=== PATIENT | male | born 1990 | race Caucasian/White ===

== ENCOUNTER 2019-08-16 22:16 | Inpatient (IN) | payer OTHER ==
[2019-08-16 22:20] VITALS: BMI 28.1
--- NOTE | 2019-08-17 00:04 | PDOC ---
History of Present Illness - General Chief Complaint: Headache Stated Complaint: HEADACHE/SENT BY URGENT CARE Time Seen by Provider: 08/16/19 23:33 History Source: Patient Exam Limitations: No Limitations - History of Present Illness Initial Comments: 08/16/19 23:51 Patient is a 29 year old male with no pmhx c/o headache x1 week. He had never had this type of GARDNER, that is refractory to Tylenol patient states that GARDNER is mostly on the left side behind the eye and radiates to the occiput. Pain is an intermittent pressure 9/10 currently. States when his pain gets very strong it is associated with nausea, photophobia, dizziness - like he is walking on air and unbalanced. States feels pressure in the forehead with holding the head down. He has been taking tylenol for the pain with mild relief every 5 hours but the pain returns. No h/o URI or congestion. Denies fever, chills, nasal congestion, neck stiffness, tinnitus. No recent travel. FamHX: Mother with history of migraines PMD: Dr. Gardiner PMHX: as above PSOCHX: neg etoh, neg drug, neg cig ALL: NKDA GENERAL/CONSTITUTIONAL: [No fever or chills. No weakness. No weight change.] HEAD, EYES, EARS, NOSE AND THROAT: [No change in vision. No ear pain or discharge. No sore throat.] CARDIOVASCULAR: [No chest pain or shortness of breath.] RESPIRATORY: [No cough, wheezing, or hemoptysis.] GASTROINTESTINAL: [No nausea, vomiting, diarrhea or constipation. No rectal bleeding.] GENITOURINARY: [No dysuria, frequency, or change in urination.] MUSCULOSKELETAL: [No joint or muscle swelling or pain. No neck or back pain.] SKIN AND BREASTS: [No rash or easy bruising.] NEUROLOGIC: [No headache, vertigo, loss of consciousness, or loss of sensation.] PSYCHIATRIC: [No depression or anxiety.] ENDOCRINE: [No increased thirst. No abnormal weight change.] HEMATOLOGIC/LYMPHATIC: [No anemia, easy bleeding, or history of blood clots.] ALLERGIC/IMMUNOLOGIC: [No hives or skin allergy. No latex allergy.] GENERAL: [The patient is awake, alert, and fully oriented, in no acute distress.] HEAD: [Normal with no signs of trauma, no sinus tenderness.] EYES: [Pupils equal, round and reactive to light, extraocular movements intact, sclera anicteric, conjunctiva clear.] ENT: [Ears normal, nares patent, oropharynx clear without exudates. Moist mucous membranes.] NECK: [Normal range of motion, supple without lymphadenopathy, JVD, or masses.] LUNGS: [Breath sounds equal, clear to auscultation bilaterally. No wheezes, and no crackles.] HEART: [Regular rate and rhythm, normal S1 and S2 without murmur, rub.] ABDOMEN: [Soft, nontender, normoactive bowel sounds. No guarding, no rebound. No masses.] EXTREMITIES: [Normal range of motion, no edema. No clubbing or cyanosis. No cords, erythema, or tenderness.] NEUROLOGICAL: [Cranial nerves II through XII grossly intact. Normal speech, normal gait.] PSYCH: [Normal mood, normal affect.] SKIN: [Warm, Dry, normal turgor, no rashes or lesions noted.] Past History - Past Medical History Allergies/Adverse Reactions: Allergies Allergy/AdvReac Type Severity Reaction Status Date / Time No Known Allergies Allergy Verified 08/16/19 22:20 Home Medications: Ambulatory Orders Sumatriptan Succinate [Imitrex] 25 mg PO Q6H #30 tablet 08/17/19 Topiramate [Topamax] 50 mg PO HS #30 tablet 08/17/19 Topiramate [Topamax] 50 mg PO HS #60 tablet 08/17/19 COPD: No - Psycho Social/Smoking Cessation Hx Smoking History: Never smoked *Physical Exam - Vital Signs Last Vital Signs Temp Pulse Resp BP Pulse Ox 98.0 F 84 18 135/69 100 08/16/19 22:18 08/16/19 22:18 08/16/19 22:18 08/16/19 22:18 08/16/19 22:18 ED Treatment Course - LABORATORY CBC & Chemistry Diagram: 08/17/19 08:57 08/17/19 08:57 Medical Decision Making - Medical Decision Making 08/16/19 23:51 Patient is a 29 year old male with no pmhx c/o headache x1 week. He had never had this type of GARDNER, that is refractory to Tylenol patient states that GARDNER is mostly on the left side behind the eye and radiates to the occiput. Pain is an intermittent pressure 9/10 currently. States when his pain gets very strong it is associated with nausea, photophobia, dizziness - like he is walking on air and unbalanced. States feels pressure in the forehead with holding the head down. He has been taking tylenol for the pain with mild relief every 5 hours but the pain returns. No h/o URI or congestion. Denies fever, chills, nasal congestion, neck stiffness. No recent travel. FamHX: Mother with history of migraines DDX: Migraine versus sinus headache less likely aneurysm Labs IV fluids, Reglan, Toradol, Decadron, Benadryl. Reassess 08/17/19 01:33 Patient states feeling improved headache is resolved. Patient is pending CT scan results. Endorsed to the nbight to follow CT scan head and disposition. Discharge - Discharge Information Problems reviewed: Yes Clinical Impression/Diagnosis: Headache Qualifiers: Headache type: unspecified Headache chronicity pattern: unspecified pattern Intractability: not intractable Qualified Code(s): R51 - Headache Condition: Good - Follow up/Referral - Patient Discharge Instructions - Post Discharge Activity
[2019-08-17] MEDS ORDERED: SODIUM CHLORIDE 0.9% 500 ML INFUS.BAG IV ONE (00:10)
[2019-08-17] MEDS ORDERED: METOCLOPRAMIDE HCL INJECTION 10 MG/2 ML VIAL IVPUSH ONE (00:10)
[2019-08-17] MEDS ORDERED: KETOROLAC TROMETHAMINE 30 MG/1 ML VIAL IVPUSH ONE (00:10)
[2019-08-17] MEDS ORDERED: DEXAMETHASONE SOD PHOSPHATE 10 MG/1 ML VIAL IVPUSH ONE (00:10)
[2019-08-17] MEDS ORDERED: METOCLOPRAMIDE HCL INJECTION 10 MG/2 ML VIAL ONE (00:39)
[2019-08-17] MEDS ORDERED: KETOROLAC TROMETHAMINE 30 MG/1 ML VIAL ONE (00:39)
[2019-08-17] MEDS ORDERED: DEXAMETHASONE SOD PHOSPHATE 10 MG/1 ML VIAL ONE (00:39)
[2019-08-17 00:57] LABS: BASO % 0.5 % (0-2.0); EOS % 0.7 % (0-4.5); HEMATOCRIT 49.8 % (35.4-49); HEMOGLOBIN 16.6 GM/dL (11.7-16.9); LYMPH % 32.6 % (8-40); MCH 27.6 pg (25.7-33.7); MCHC 33.4 g/dl (32.0-35.9); MEAN CELL VOLUME 82.5 fl (80-96); MEAN PLT VOLUME 8.8 fl (7.5-11.1); MONO % 7.4 % (3.8-10.2); NEUT % 58.8 % (42.8-82.8); PLATELET COUNT 210 K/MM3 (134-434); RBC 6.03 M/mm3 (4.00-5.60); RDW 14.6 % (11.9-15.9)
[2019-08-17 01:10] LABS: ALBUMIN 4.5 g/dl (3.4-5.0); BILIRUBIN,TOTAL 0.5 mg/dL (0.2-1); BLOOD UREA NITROGEN 18.9 mg/dL (7-18); CALCIUM 8.7 mg/dL (8.5-10.1); CREATININE 1.1 mg/dL (0.55-1.3); POTASSIUM 4.6 mmol/L (3.5-5.1); TOT PROT 7.8 g/dl (6.4-8.2)
--- NOTE | 2019-08-17 03:19 | PDOC ---
*Physical Exam - Vital Signs Last Vital Signs Temp Pulse Resp BP Pulse Ox 98.0 F 84 18 135/69 100 08/16/19 22:18 08/16/19 22:18 08/16/19 22:18 08/16/19 22:18 08/16/19 22:18 ED Treatment Course - LABORATORY CBC & Chemistry Diagram: 08/17/19 08:57 08/17/19 08:57 - ADDITIONAL ORDERS Additional order review: Laboratory Results 08/17/19 00:20 Sodium 140 Potassium 4.6 Chloride 107 Carbon Dioxide 27 Anion Gap 6 L BUN 18.9 H Creatinine 1.1 Est GFR (CKD-EPI)AfAm 103.85 Est GFR (CKD-EPI)NonAf 89.61 Random Glucose 91 Calcium 8.7 Total Bilirubin 0.5 AST 32 ALT 54 Alkaline Phosphatase 63 Total Protein 7.8 Albumin 4.5 08/17/19 00:20 RBC 6.03 H MCV 82.5 MCHC 33.4 RDW 14.6 MPV 8.8 Neutrophils % 58.8 Lymphocytes % 32.6 Monocytes % 7.4 Eosinophils % 0.7 Basophils % 0.5 - Medications Given in the ED: ED Medications Discontinued Medications Generic Name Dose Route Start Last Admin Trade Name Freq PRN Reason Stop Dose Admin Dexamethasone Sodium Phosphate 10 mg 08/17/19 00:10 08/17/19 00:48 Decadron Injection - IVPUSH 08/17/19 00:11 10 mg ONCE ONE Administration Ketorolac Tromethamine 30 mg 08/17/19 00:10 08/17/19 00:48 Toradol Injection - IVPUSH 08/17/19 00:11 30 mg ONCE ONE Administration Metoclopramide HCl 10 mg 08/17/19 00:10 08/17/19 00:48 Reglan Injection - IVPUSH 08/17/19 00:11 10 mg ONCE ONE Administration Sodium Chloride 1,000 ml 08/17/19 00:10 08/17/19 00:48 Normal Saline - IV 08/17/19 00:11 1,000 ml ONCE ONE Administration Medical Decision Making - Medical Decision Making 08/17/19 03:18 Patient Name: ASTER KAT THIS IS A PRELIMINARY REPORT FROM [facility] DATE OF SERVICE: 2019-08-17 01:06:28 IMAGES: 39 Patient Name: KEYLA JEAN BAPTISTE THIS IS A PRELIMINARY REPORT FROM [facility] DATE OF SERVICE: 2019-08-17 01:24:42 IMAGES: 265 EXAM: CT HEAD WITHOUT INTRAVENOUS CONTRAST. HISTORY: Headache COMPARISON: None. FINDINGS: 1. Limited examination of the CT head as the superior most portion of the brain was not imaged. 2. The imaged portions of the brain demonstrate no intracranial bleed, extra- axial fluid collection, mass effect, midline shift, hydrocephalus, acute territorial infarct or depressed skull fracture. 3. Disconjugate gaze. Recommend clinical correlation. 4. Bilateral maxillary sinus retention cysts/polyps. 08/17/19 03:37 Pt has right eye a bit medially placed and doesn't abduct to the right completely. Pt has pain on the right lateral aspect of the eye. Discharge - Discharge Information Problems reviewed: Yes Clinical Impression/Diagnosis: Headache Qualifiers: Headache type: unspecified Headache chronicity pattern: unspecified pattern Intractability: not intractable Qualified Code(s): R51 - Headache Condition: Good - Follow up/Referral - Patient Discharge Instructions - Post Discharge Activity
[2019-08-17] MEDS ORDERED: SODIUM CHLORIDE 1,000 ML IV SCH (05:15)
[2019-08-17] MEDS ORDERED: ACETAMINOPHEN 325 MG TABLET (FP) PO PRN ×2 (05:18→12:27)
[2019-08-17] MEDS ORDERED: MAGNESIUM SULF 50% (8.12 MEQ/2 ML-1 GM VIAL) IVPB ONE (05:19)
--- NOTE | 2019-08-17 05:21 | HP ---
CHIEF COMPLAINT: headache PCP: dr rae HISTORY OF PRESENT ILLNESS: 29 y.o. M no past medical or surgical history presenting for headache. The GARDNER began 9 days go as a 8/10 pain behind his L orbit. Denies any visual changes or deficits. He took tylenol at home with some relief but was still experiencing t he pain. 2 days ago the pain migrated to behind his R eye. It is associated with photophobia and is intermittent (but not pulsatile), never constant. Denies lacrimation/ rhinorrhea during headaches. He does not smoke cigarettes and has not started taking any medications recently. No direct sick contacts at home but works in [employer] at [employer]. Denies fevers/chills/n/v/d/ myalgias. ER course was notable for: (1) toradol 30mg, decadron 10mg, reglan 10mg (2) 1L NS (3) Recent Travel: denies PAST MEDICAL HISTORY: none PAST SURGICAL HISTORY: none Social History: Smoking:denies Alcohol:denies Drugs: denies Allergies No Known Allergies Allergy (Verified 08/16/19 22:20) HOME MEDICATIONS: none Family history: migraines in mother PHYSICAL EXAMINATION Vital Signs - 24 hr 08/16/19 22:18 Temperature 98.0 F Pulse Rate 84 Respiratory 18 Rate Blood Pressure 135/69 O2 Sat by Pulse 100 Oximetry (%) GENERAL: Awake, alert, and fully oriented, in no acute distress. HEAD: NCAT. EYES: PERRLA, extraocular movements intact, mild discomfort with R lateral gaze howeevr no palsies. Sclera anicteric, conjunctiva clear. No ptosis. ENT: Oropharynx clear without exudates. Moist mucous membranes. LUNGS: Breath sounds equal, clear to auscultation bilaterally. No wheezes, and no crackles. No accessory muscle use. HEART: Regular rate and rhythm, normal S1 and S2 without murmur, rub or gallop. ABDOMEN: Soft, nontender, not distended, normoactive bowel sounds. MUSCULOSKELETAL: Normal range of motion at all joints. EXTREMITIES: 2+ pulses, warm, well-perfused. No calf tenderness. No peripheral edema. NEUROLOGICAL: Cranial nerves II-XII intact. Normal speech and gait. PSYCHIATRIC: Appropriate mood and affect. SKIN: Warm, dry, normal turgor, no rashes or lesions noted. Laboratory Results - last 24 hr 08/17/19 08/17/19 00:20 00:20 WBC 6.0 RBC 6.03 H Hgb 16.6 Hct 49.8 H MCV 82.5 MCH 27.6 MCHC 33.4 RDW 14.6 Plt Count 210 MPV 8.8 Absolute Neuts (auto) 3.5 Neutrophils % 58.8 Lymphocytes % 32.6 Monocytes % 7.4 Eosinophils % 0.7 Basophils % 0.5 Nucleated RBC % 0 Sodium 140 Potassium 4.6 Chloride 107 Carbon Dioxide 27 Anion Gap 6 L BUN 18.9 H Creatinine 1.1 Est GFR (CKD-EPI)AfAm 103.85 Est GFR (CKD-EPI)NonAf 89.61 Random Glucose 91 Calcium 8.7 Total Bilirubin 0.5 AST 32 ALT 54 Alkaline Phosphatase 63 Total Protein 7.8 Albumin 4.5 Imaging: * CT head: 1.Limited examination of the CT head as the superior most portion of the brain was not imaged. 2. The imaged portions of the brain demonstrate no intracranial bleed, extra- axial fluid collection, mass effect, midline shift, hydrocephalus, acute territorial infarct or depressed skull fracture. 3. Disconjugate gaze. Recommend clinical correlation. 4. Bilateral maxillary sinus retention cysts/polyps. ASSESSMENT/PLAN: 29 y.o. M no past medical history presenting for headache found to have R lateral gaze deficit on initial neuro exam. #Dysconjugate gaze -GARDNER not completely improving w/ tylenol -afebrile, no leukocytosis, ctm -giving mag sulfate 1g -tylenol prn for pain -neuro consulted (Dr. Lowery) due to findings of dysconjugate gaze; ED exam noted patient was having difficulty w/ lateral gaze, however resolved on my exam (only had discomfort with R lateral gaze) #FEN -NS @83cc/hr -replete lytes prn -regular diet #PPX ambulating well, scds if lying in bed #Dispo med surg Visit type - Emergency Visit Emergency Visit: Yes Care time: The patient presented to the Emergency Department on the above date and was hospitalized for further evaluation of their emergent condition. - New Patient This patient is new to me today: Yes Date on this admission: 08/17/19 - Critical Care Critical Care patient: No ATTENDING PHYSICIAN STATEMENT I saw and evaluated the patient. I reviewed the resident's note and discussed the case with the resident. I agree with the resident's findings and plan as documented. SUBJECTIVE: OBJECTIVE: ASSESSMENT AND PLAN:
[2019-08-17] MEDS ORDERED: MAGNESIUM 1GM/D5W - 1 GM/100 ML IVPB IVPB ONE (06:20)
--- NOTE | 2019-08-17 06:52 | PN ---
Teaching Attending Note Name of Resident: Aleja Kapadia ATTENDING PHYSICIAN STATEMENT I saw and evaluated the patient. I reviewed the resident's note and discussed the case with the resident. I agree with the resident's findings and plan as documented. SUBJECTIVE: 29-year-old male previously healthy complained of 9 days of unilateral headache mostly behind his left eye. Complained also some photophobia. Reports that headache was recurrence, came and went. Denied any use of drugs or smoking cigarettes or drink alcohol. Reports family history of migraine in his mother. No reported nausea or vomiting. In the emergency room received Toradol, Decadron, Reglan with some relief in symptoms. OBJECTIVE: Last Vital Signs Temp Pulse Resp BP Pulse Ox 98.0 F 84 18 135/69 100 08/16/19 22:18 08/16/19 22:18 08/16/19 22:18 08/16/19 22:18 08/16/19 22:18 Physical exam was normal without any focal neurological deficits. There was rheumatic, normocephalic. Mucous membranes are moist. Neck was supple. Cardiovascular exam was S1, S2 with regular rate and rhythm. Chest was clear to auscultation bilaterally. Extremities with no weakness or sensory deficits. Abnormal Lab Results 08/17/19 08/17/19 00:20 00:20 RBC 6.03 H Hct 49.8 H Anion Gap 6 L BUN 18.[address] reviewed ASSESSMENT AND PLAN: 29-year-old male with severe migraine with some relief after Toradol IV fluid hydration Naproxen Avoid bright lights Check electrolytes and replete PRN Send urine toxicology Heparin subcutaneously for DVT prophylaxis
[2019-08-17] MEDS ORDERED: KETOROLAC TROMETHAMINE 10 MG TABLET PO PRN (08:32)
[2019-08-17 09:15] LABS: HEMATOCRIT 44.7 % (35.4-49); HEMOGLOBIN 15.2 GM/dL (11.7-16.9); MCH 27.6 pg (25.7-33.7); MCHC 33.9 g/dl (32.0-35.9); MEAN CELL VOLUME 81.4 fl (80-96); MEAN PLT VOLUME 8.5 fl (7.5-11.1); PLATELET COUNT 194 K/MM3 (134-434); RDW 14.4 % (11.9-15.9); WHITE BLOOD COUNT 3.9 K/mm3 (4.0-10.0)
[2019-08-17 09:40] LABS: BLOOD UREA NITROGEN 16.4 mg/dL (7-18); CREATININE 0.8 mg/dL (0.55-1.3); MAGNESIUM 2.6 mg/dL (1.8-2.4)
[2019-08-17] MEDS ORDERED: ACETAMINOPHEN/CAFFEINE/BUTALBITAL 1 TAB PO PRN ×2 (10:30→10:47)
--- NOTE | 2019-08-17 10:30 | CON.NEURO ---
Consult Consult Specialty:: Sebastián Referred by:: PCP Reason for Consultation:: GARDNER - History of Present Illness History of Present Illness: 29 year swwith GARDNER No nause [place] of[place] No temp No recnet travel had similar headache before - History Source History Provided By: Patient Limitations to Obtaining History: No Limitations - Smoking History Smoking history: Never smoked Home Medications - Allergies Allergies/Adverse Reactions: Allergies Allergy/AdvReac Type Severity Reaction Status Date / Time No Known Allergies Allergy Verified 08/16/19 22:20 Family Medical History Family History: Unremarkable Review of Systems - Review of Systems Constitutional: reports: No Symptoms Eyes: reports: No Symptoms Neurological: reports: Headache, Incoordination, Numbness Physical Exam-Neuro Vital Signs: Vital Signs Temperature 97.6 F 08/17/19 07:30 Pulse Rate 89 08/17/19 07:30 Respiratory Rate 16 08/17/19 07:30 Blood Pressure 108/54 L 08/17/19 07:30 O2 Sat by Pulse Oximetry (%) 98 08/17/19 07:30 Constitutional: Yes: Well Nourished Neck: Yes: WNL Cardiovascular: Yes: WNL Labs: CBC, BMP 08/17/19 08:57 08/17/19 08:57 - Neuro Exam Level Of Consciousness: Yes: Oriented to Person, Oriented to Place, Oriented to Time, Obtunded Eyes: Yes: PERRL Speech: WNL Dominant Hand: Right Cranial Nerves II-XII Intact: Yes Gag: Present DTR's: 1+ Left Bicep, 1+ Right Bicep, 1+ Left Tricep, 1+ Right Tricep Response to light touch: Normal Response to pain prick: Normal Response to temperature: Normal Response to vibration: Normal Motor Strength: 3/5: Left Arm, Right Arm, Left Leg, Right Leg Gait: Deferred Imaging - Results X-ray: Image Reviewed MRI: Image Reviewed Problem List - Problems (1) Headache Code(s): R51 - HEADACHE Qualifiers: Headache type: unspecified Headache chronicity pattern: unspecified pattern Intractability: not intractable Qualified Code(s): R51 - Headache Assessment/Plan Looked at [place] MRI Neuro ok to go home Topamax 50 mg po qhs Imitrex prn headcahe
[2019-08-17 11:02] LABS: COCAINE, UR NEGATIVE ng/ml (CUTOFF=300); METHADONE, UR NEGATIVE ng/ml (CUTOFF=300); OPIATES, URI NEGATIVE ng/ml (CUTOFF=300); PHENCYCLIDINE,URINE NEGATIVE ng/ml (CUTOFF=25); URINE AMPHETAMINES NEGATIVE ng/ml (CUTOFF=500); URINE BARBITURATES NEGATIVE ng/ml (CUTOFF=200); URINE BENZODIAZEPINES NEGATIVE ng/ml (CUTOFF=200)
[2019-08-17] MEDS ORDERED: ACETAMINOPHEN 325 MG TABLET (FP) ONE (11:46)
--- NOTE | 2019-08-17 17:56 | HOSP ---
Subjective - Review of Symptoms General: Yes: Other HEENT: Yes: Head Aches, Eye Pain Physical Examination Vital Signs: Vital Signs Temperature 97.8 F 08/17/19 16:40 Pulse Rate 82 08/17/19 16:40 Respiratory Rate 16 08/17/19 16:40 Blood Pressure 106/78 08/17/19 16:40 O2 Sat by Pulse Oximetry (%) 98 08/17/19 07:30 Constitutional: Yes: Well Nourished, No Distress, Calm Eyes: Yes: WNL HENT: Yes: Atraumatic Neck: Yes: WNL Cardiovascular: Yes: Regular Rate and Rhythm Respiratory: Yes: CTA Bilaterally Gastrointestinal: Yes: Normal Bowel Sounds, Soft Labs: CBC, BMP 08/17/19 08:57 08/17/19 08:57
[2019-08-17 18:24] VITALS: BP 131/62; PULSE 89; TEMP 98.8
--- NOTE | 2019-08-17 18:26 | DS ---
Physical Exam: SUBJECTIVE: Patient seen and examined OBJECTIVE: Vital Signs Period Temp Pulse Resp BP Sys/Freeman Pulse Ox Last 24 Hr 97.6 F-98.8 F 82-99 16-20 106-135/52-78 98-100 PHYSICAL EXAM GENERAL: The patient is awake, alert, and fully oriented, in no acute distress. HEAD: Normal with no signs of trauma. EYES: PERRL, extraocular movements intact, sclera anicteric, conjunctiva clear. ENT: Ears normal, nares patent, oropharynx clear without exudates, moist mucous membranes. NECK: Trachea midline, full range of motion, supple. LUNGS: Breath sounds equal, clear to auscultation bilaterally, no wheezes, no crackles, no accessory muscle use. HEART: Regular rate and rhythm, S1, S2 without murmur, rub or gallop. ABDOMEN: Soft, nontender, nondistended, normoactive bowel sounds, no guarding, no rebound, no hepatosplenomegaly, no masses. EXTREMITIES: 2+ pulses, warm, well-perfused, no edema. NEUROLOGICAL: Cranial nerves II through XII grossly intact. Normal speech, gait not observed. PSYCH: Normal mood, normal affect. SKIN: Warm, dry, normal turgor, no rashes or lesions noted. LABS Laboratory Results - last 24 hr 08/17/19 08/17/19 08/17/19 00:20 00:20 08:57 WBC 6.0 3.9 L RBC 6.03 H 5.50 Hgb 16.6 15.2 Hct 49.8 H 44.7 MCV 82.5 81.4 MCH 27.6 27.6 MCHC 33.4 33.9 RDW 14.6 14.4 Plt Count 210 194 MPV 8.8 8.5 Absolute Neuts (auto) 3.5 Neutrophils % 58.8 Lymphocytes % 32.6 Monocytes % 7.4 Eosinophils % 0.7 Basophils % 0.5 Nucleated RBC % 0 Sodium 140 Potassium 4.6 Chloride 107 Carbon Dioxide 27 Anion Gap 6 L BUN 18.9 H Creatinine 1.1 Est GFR (CKD-EPI)AfAm 103.85 Est GFR (CKD-EPI)NonAf 89.61 Random Glucose 91 Calcium 8.7 Magnesium Total Bilirubin 0.5 AST 32 ALT 54 Alkaline Phosphatase 63 Total Protein 7.8 Albumin 4.5 Opiates Screen Methadone Screen Barbiturate Screen Phencyclidine Screen Ur Amphetamines Screen MDMA (Ecstasy) Screen Benzodiazepines Screen Cocaine Screen U Marijuana (THC) Screen 08/17/19 08/17/19 08:57 10:36 WBC RBC Hgb Hct MCV MCH MCHC RDW Plt Count MPV Absolute Neuts (auto) Neutrophils % Lymphocytes % Monocytes % Eosinophils % Basophils % Nucleated RBC % Sodium 139 Potassium 5.0 Chloride 108 H Carbon Dioxide 24 Anion Gap 6 L BUN 16.4 Creatinine 0.8 Est GFR (CKD-EPI)AfAm 138.93 Est GFR (CKD-EPI)NonAf 119.87 Random Glucose 125 H Calcium 9.0 Magnesium 2.6 H Total Bilirubin AST ALT Alkaline Phosphatase Total Protein Albumin Opiates Screen Negative Methadone Screen Negative Barbiturate Screen Negative Phencyclidine Screen Negative Ur Amphetamines Screen Negative MDMA (Ecstasy) Screen Negative Benzodiazepines Screen Negative Cocaine Screen Negative U Marijuana (THC) Screen Negative HOSPITAL COURSE: Date of Admission:08/17/19 Date of Discharge: 08/17/19 Discharge Summary Problems reviewed: Yes Reason For Visit: HEADACHE Current Active Problems Headache (Acute) Condition: Good - Instructions Diet, Activity, Other Instructions: Mr Navin [place]. You were admitted at [facility] for headaches and you were evaluated by a neurologist. Brain MRI was normal and we will be sending you home with the following medications for the headaches: Start Topamax 50mg Once at Bedtime daily Take Imitrex NEEDED every 6 hours If you develop a headache. Please follow up with Dr. Lowery by calling his office for an appointment. Thank you for allowing us to care for you.. Referrals: Devon Gardiner MD [Primary Care Provider] - Celia Lowery MD [Staff Physician] - Disposition: HOME - Home Medications Comprehensive Discharge Medication List: Ambulatory Orders Sumatriptan Succinate [Imitrex] 25 mg PO Q6H #30 tablet 08/17/19 Topiramate [Topamax] 50 mg PO HS #30 tablet 08/17/19 Topiramate [Topamax] 50 mg PO HS #60 tablet 08/17/19
== END 2019-08-17 20:02 | disposition home or self-care (01) | DRG 103 ==
LOC: JER 22:16 → JERBED 08-17 07:19 → J5S 08-17 17:58
PROVIDERS: ADMIT Internal Medicine; ATTEND Nurse Practitioner Family
DX: G43.909 Migraine, unspecified, not intractable, without status migrainosus (principal); H53.149 Visual discomfort, unspecified
CPT/HCPCS: 36415; 70450-TC; 70551-TC; 80048; 80053; 80307; 83735; 85025; 85027; 99285-25; J1100; J7030